=== PATIENT | female | born 1960 | race African-American/Black ===

== ENCOUNTER 2016-06-20 21:36 | Emergency (ER) | payer BC ==
[~2016-06-20] VITALS: Ht 172.7 cm; Wt 74.8 kg
[~2016-06-20 21:36] MED LIST: CLOP75TA PO; EZET1TAB35 PO; HYDR-2762 PO; LISI40TA PO; MELO7.5T29 PO; NEBI10TA3 PO; NIFE90TA PO; [UNRECOGNIZED DRUG - REMARK]
--- NOTE | 2016-06-20 22:22 | PHYS DOC ---
Past History Past Medical History: CAD, CVA, Diabetes, Hypertension Past Surgical History: Hysterectomy, Tubal ligation, Other Alcohol Use: Occasionally Drug Use: None Adult General Chief Complaint Chief Complaint: KNEE INJURY HPI HPI 56-year-old female presenting to the emergency department today after injuring her right knee. Her pain is mild to moderate worse with walking. She fell yesterday. She denies any other injuries. Onset yesterday location right knee. Duration intermittent. No alleviating factors. Review of systems was negative for ankle pain or hip pain. She denies chest pain or shortness of breath or abdominal pain. All other review of systems is negative unless otherwise noted in history of present illness. Review of Systems Review of Systems SEE ABOVE. Allergies Allergies Allergies Coded Allergies Type Severity Reaction Last Updated Verified No Known Drug Allergies 07/14/14 No Physical Exam Physical Exam Constitutional: Well developed, well nourished, no acute distress, non-toxic appearance. HENT: Normocephalic, atraumatic, bilateral external ears normal, oropharynx moist, no oral exudates, nose normal. [] Eyes: PERRLA, EOMI, conjunctiva normal, no discharge. Neck: Normal range of motion, no tenderness, supple, no stridor. [] Cardiovascular:Heart rate regular rhythm, no murmur Lungs & Thorax: Bilateral breath sounds clear to auscultation [] Abdomen: Bowel sounds normal, soft, no tenderness, no masses, no pulsatile masses. Skin: Warm, dry, no erythema, no rash. [] Back: No tenderness, no CVA tenderness. [] Extremities: right leg has mild pain in the right knee. Otherwise neurovascularly intact distally. Mild tenderness to palpation along the lateral and medial aspect of the knee. No lacerations or ecchymosis or abrasions present. No ecchymosis or swelling of the ankle. Good range of motion. He fires the TA, EH, FHL and Gastrocnemius soleus complex. Normal sensation in the deep peroneal, superficial peroneal, Sural, saphenous, medial and lateral tibial and calcaneal sensory nerves in the foot. 2+ PT and DP pulse. No pain to palpation on the medial or lateral malleolus or at the base of the fifth metatarsal. Neurologic: Alert and oriented X 3, normal motor function, normal sensory function, no focal deficits noted. [] Psychologic: Affect normal, judgement normal, mood normal. EKG EKG [] Radiology/Procedures Radiology/Procedures Right knee x-ray evaluated by myself shows no obvious fracture or dislocation. [ ] Course & Med Decision Making Course & Med Decision Making Pertinent Labs and Imaging studies reviewed. (See chart for details) [] Dragon Disclaimer Dragon Disclaimer This chart was dictated in whole or in part using Voice Recognition software in a busy, high-work load, and often noisy Emergency Department environment. It may contain unintended and wholly unrecognized errors or omissions. Departure Departure: Impression: Primary Impression: Right knee pain Disposition: HOME, SELF-CARE Condition: STABLE Referrals: PCP,EARNESTINE (PCP) TINO PASTOR MD Patient Instructions: Knee Pain, [id number] Additional Instructions: Thank you for allowing us to participate in your care today. Followup with your primary care physician in 3 days if your symptoms do not improve. If you do not have a primary care provider you can ask for a list of our primary care providers. Return to the emergency department you have any new or concerning findings. This should be evaluated by the primary care physician and any necessary consulting services for continued management within a few days after discharge. Return to emergency room if you have any new or concerning symptoms including but not limited to fever, chills, nausea, vomiting, intractable pain, any new rashes, chest pain, shortness of air, uncontrolled bleeding, difficulty breathing, and/or vision loss. You may have been prescribed medication that can change in your level of thinking and ability to operate machinery. These medications include hydrocodone and Ativan. Also, Benadryl has been known to do this as well. Be sure to check with your pharmacist and ask if the medications you've prescribed can affect your level of consciousness. I recommend not operating heavy machinery or driving while on medication such as these. Scripts Morphine Sulfate (MORPHINE SULFATE) 15 Mg Tablet 1 TAB PO PRN Q8HRS Y for SEVERE PAIN, #8 TAB Be careful as this medication may make you sleepy or drowsy. Do not drive or operate heavy machinery on this medication. Be sure to ask the pharmacist about other side effects that can exist such as constipation. Prov: SERENA RODRIGUEZ MD 06/20/16 Problem Qualifiers Primary Impression: Right knee pain Chronicity: acute Qualified Codes: M25.561 - Pain in right knee SERENA RODRIGUEZ MD June 20, 2016:22
[2016-06-20] MEDS ORDERED: MORP15TA PO (22:46)
[2016-06-20] MEDS ORDERED: MORPHINE IR 15 MG TABLET PO ONE (23:00)
[2016-06-20 23:19] VITALS: BP 143/94
--- NOTE | 2016-06-21 07:51 | RAD ---
Right knee, 3 views, 06/20/2016: History: Severe right knee pain, fall No fracture or dislocation is identified. There is mild spurring at the knee joint. Mild degenerative changes present patellofemoral articulation. No significant joint effusion is evident. IMPRESSION: 1. Mild degenerative change. 2. No acute bony abnormality is detected.
== END 2016-06-20 23:30 | disposition home or self-care (01) ==
LOC: ER 21:37
DX: M25.561 Pain in right knee (principal); E11.9 Type 2 diabetes mellitus without complications; I10 Essential (primary) hypertension; I25.10 Atherosclerotic heart disease of native coronary artery without angina pectoris; Z86.73 Personal history of transient ischemic attack (TIA), and cerebral infarction without residual deficits; W19.XXXA Unspecified fall, initial encounter; Y93.89 Activity, other specified; Y99.8 Other external cause status; Y92.89 Other specified places as the place of occurrence of the external cause
CPT/HCPCS: 29505; 73562; 99284-25

== ENCOUNTER 2017-02-13 18:44 | Emergency (ER) | payer BC ==
[~2017-02-13] VITALS: Ht 172.7 cm; Wt 74.8 kg
[~2017-02-13 18:44] MED LIST changes: +MORP15TA PO
[2017-02-13] MEDS ORDERED: diphenhydrAMINE 50 MG/ML VIAL IVP ONE (19:30)
[2017-02-13] MEDS ORDERED: PROCHLORPERAZINE 10 MG/2 ML VIAL. IV ONE (19:30)
[2017-02-13 19:36] LABS: BASO % 1 % (0-3); EOS # 0.1 x10^3/uL (0.0-0.7); EOS % 2 % (0-3); HEMATOCRIT 43.1 % (36.0-47.0); HEMOGLOBIN 14.9 g/dL (12.0-15.5); LYMPH # 2.6 x10^3/uL (1.0-4.8); LYMPH % 46 % (24-48); MEAN CORPUSCULAR HEMOGLOBIN 31 pg (25-35); MEAN CORPUSCULAR HGB CONC 35 g/dL (31-37); MEAN CORPUSCULAR VOLUME 90 fL (79-100); MONO # 0.4 x10^3/uL (0.0-1.1); MONO % 7 % (0-9); NEUT # 2.5 x10^3uL (1.8-7.7); NEUT % 44 % (31-73); PLATELET COUNT 233 x10^3/uL (140-400); RED BLOOD COUNT 4.81 x10^6/uL (3.50-5.40); RED CELL DISTRIBUTION WIDTH 13.3 % (11.5-14.5); WHITE BLOOD COUNT 5.7 x10^3/uL (4.0-11.0)
[2017-02-13 19:41] LABS: CALCIUM 9.2 mg/dL (8.5-10.1); GFR 68.9; POTASSIUM 3.3 mmol/L (3.5-5.1)
[2017-02-13] MEDS ORDERED: IV NORMAL SALINE 1,000ML 1,000 ML IV ONE (21:30)
[2017-02-13 21:51] LABS: BACTERIA,URINE 0 /HPF (0-FEW); BILIRUBIN,URINE NEG (NEG); CLARITY,URINE CLEAR; COLOR,URINE STRAW; GLUCOSE,URINE NEG (NEG); NITRITE,URINE NEG (NEG); RBC,URINE 0 /HPF (0-2); SQUAMOUS EPITHELIAL CELL,UR OCC /LPF; UROBILINOGEN,URINE 1 mg/dL (0.2 mg/dL); WBC,URINE OCC /HPF (0-4)
[2017-02-13] MEDS ORDERED: ACETAMINOPHEN 325 MG TABLET PO ONE (22:00)
[2017-02-13] MEDS ORDERED: KETOROLAC 15 MG/ML VIAL. IV ONE (22:00)
[2017-02-13 22:07] LABS: INFLUENZA A PATIENT NEGATIVE (NEGATIVE); INFLUENZA B PATIENT NEGATIVE (NEGATIVE)
--- NOTE | 2017-02-13 22:52 | EKG ---
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
--- NOTE | 2017-02-13 22:59 | PHYS DOC ---
Past History Past Medical History: CAD, CVA, Diabetes, Hypertension, Migraines Past Surgical History: Hysterectomy, Tubal ligation, Other Alcohol Use: None Drug Use: None Adult General Chief Complaint Chief Complaint: MULTIPLE COMPLAINTS [facility] HPI Patient is a 56-year-old female who presents with diffuse complaints that include headache similar to previous, diffuse chest wall and back pain as well as as upper extremity pain low back pain or muscle pain. Patient denies any fevers, rashes. Patient has been having some chills. Unknown if sick contacts. Patient states she did have her shots this year. Review of Systems Review of Systems Constitutional: Yes to chills Eyes: Denies change in visual acuity, redness, or eye pain [] HENT: No ear pain, mild soreness of the throat Respiratory: Yes to cough, no shortness of breath Cardiovascular: No additional information not addressed in HPI [] GI: Denies abdominal pain, nausea, vomiting, bloody stools or diarrhea [] : Denies dysuria or hematuria or vaginal discharge Musculoskeletal: Diffuse back pain Integument: Denies rash or skin lesions [] Neurologic: Denies headache, focal weakness or sensory changes [] All other systems were reviewed and found to be within normal limits, except as documented in this note. Current Medications Current Medications Current Medications Medications (Trade) Dose Ordered Sig/[facility] Start Time Stop Time Status Last Admin Dose Admin Acetaminophen (Tylenol) 650 mg 1X ONCE 02/13/17 22:00 02/13/17 22:01 DC 02/13/17 21:34 650 MG Diphenhydramine HCl (Benadryl) 25 mg 1X ONCE 02/13/17 19:30 02/13/17 19:31 DC 02/13/17 19:37 25 MG Ketorolac Tromethamine (Toradol) 15 mg 1X ONCE 02/13/17 22:00 02/13/17 22:01 DC 02/13/17 21:34 15 MG Prochlorperazine Edisylate (Compazine) 10 mg 1X ONCE 02/13/17 19:30 02/13/17 19:31 DC 02/13/17 19:37 10 MG Sodium Chloride 1,000 ml @ 1,000 mls/hr 1X ONCE 02/13/17 21:30 02/13/17 22:29 DC 02/13/17 21:35 1,000 MLS/HR Allergies Allergies Allergies Coded Allergies Type Severity Reaction Last Updated Verified No Known Drug Allergies 07/14/14 No Physical Exam Physical Exam Constitutional: Well developed, well nourished, mild distress, non-toxic appearance. [] HENT: Normocephalic, atraumatic, bilateral external ears normal, oropharynx moist, no oral exudates, nose normal. Airways patent Eyes: EOMI, conjunctiva normal, no discharge. [] Neck: Normal range of motion, no tenderness, supple, no stridor. No LAD, no meningeal signs Cardiovascular:Heart rate regular rhythm, no murmur, equal pulses, normal perfusion Lungs & Thorax: Bilateral breath sounds clear to auscultation on no tachypnea Abdomen: Bowel sounds normal, soft, no tenderness, no masses, no pulsatile masses. [] Skin: Warm, dry, no erythema, no rash. [] Back: Mild diffuse tenderness, no CVA tenderness. No midline tenderness, no step -offs Extremities: No tenderness, no cyanosis, no clubbing, ROM intact, no edema. No signs of DVT Neurologic: Alert and oriented X 3, normal motor function, normal speech, no focal deficits noted. Ambulates in the ED with normal gait and without assistance Psychologic: Affect normal, judgement normal, mood normal. [] Current Patient Data Vital Signs Vital Signs Date Time Temp Pulse Resp B/P (MAP) Pulse Ox O2 Delivery O2 Flow Rate FiO2 02/13/17 18:45 98.8 61 18 99 Room Air Lab Results Laboratory Tests Test 02/13/17 19:10 02/13/17 20:58 White Blood Count 5.7 x10^3/uL (4.0-11.0) Red Blood Count 4.81 x10^6/uL (3.50-5.40) Hemoglobin 14.9 g/dL (12.0-15.5) Hematocrit 43.1 % (36.0-47.0) Mean Corpuscular Volume 90 fL (79-100) Mean Corpuscular Hemoglobin 31 pg (25-35) Mean Corpuscular Hemoglobin Concent 35 g/dL (31-37) Red Cell Distribution Width 13.3 % (11.5-14.5) Platelet Count 233 x10^3/uL (140-400) Neutrophils (%) (Auto) 44 % (31-73) Lymphocytes (%) (Auto) 46 % (24-48) Monocytes (%) (Auto) 7 % (0-9) Eosinophils (%) (Auto) 2 % (0-3) Basophils (%) (Auto) 1 % (0-3) Neutrophils # (Auto) 2.5 x10^3uL (1.8-7.7) Lymphocytes # (Auto) 2.6 x10^3/uL (1.0-4.8) Monocytes # (Auto) 0.4 x10^3/uL (0.0-1.1) Eosinophils # (Auto) 0.1 x10^3/uL (0.0-0.7) Basophils # (Auto) 0.0 x10^3/uL (0.0-0.2) Sodium Level 145 mmol/L (136-145) Potassium Level 3.3 mmol/L (3.5-5.1) L Chloride Level 106 mmol/L (98-107) Carbon Dioxide Level 29 mmol/L (21-32) Anion Gap 10 (6-14) Blood Urea Nitrogen 11 mg/dL (7-20) Creatinine 1.0 mg/dL (0.6-1.0) Estimated GFR (Cockcroft-Gault) 68.9 Glucose Level 124 mg/dL (70-99) H Calcium Level 9.2 mg/dL (8.5-10.1) Troponin I Quantitative < 0.017 ng/mL (0-0.055) Urine Collection Type Unknown Urine Color Straw Urine Clarity Clear Urine pH 8.5 Urine Specific [place] 1.020 Urine Protein Neg (NEG-TRACE) Urine Glucose (UA) Neg mg/dL (NEG) Urine Ketones (Stick) Neg mg/dL (NEG) Urine Blood Neg (NEG) Urine Nitrite Neg (NEG) Urine Bilirubin Neg (NEG) Urine Urobilinogen Dipstick 1 mg/dL (0.2 mg/dL) Urine Leukocyte Esterase Neg (NEG) Urine RBC 0 /HPF (0-2) Urine WBC Occ /HPF (0-4) Urine Squamous Epithelial Cells Occ /LPF Urine Bacteria 0 /HPF (0-FEW) Influenza Type A (Rapid) Negative (NEGATIVE) Influenza Type B (Rapid) Negative (NEGATIVE) EKG EKG 1855 65, sinus rhythm, no STEMI[] Radiology/Procedures Radiology/Procedures Preliminary chest x-ray read no acute pathology[] Course & Med Decision Making Course & Med Decision Making Pertinent Labs and Imaging studies reviewed. (See chart for details) Patient feels improved and requested to be discharged home. Prior To discharge we will do an i-STAT troponin and if negative we will discharge the patient home for outpatient follow-up. Patient looks well and vital signs are unremarkable physical exam is unremarkable. Patient has improved during the ED stay. Her chief complaint is diffuse muscle aches and malaise. Given the findings today I believe the patient is is stable for outpatient follow-up, imaging is not required at this time. Strict return precautions have been discussed with the patient and the family who agreed to follow-up as directed. [2317 istat troponin negative] Dragon Disclaimer Dragon Disclaimer This electronic medical record was generated, in whole or in part, using a voice recognition dictation system. Departure Departure: Impression: Primary Impression: Body aches Additional Impressions: Nonspecific chest pain Migraine Disposition: 01 HOME, SELF-CARE Condition: STABLE Referrals: PCPEARNESTINE (PCP) His follow-up with your doctor for recheck and reevaluation in one day. You may also follow-up at one of the clinics in the list provided to you. Patient Instructions: Chest Pain (Nonspecific), Migraine Headache, Myalgia, Adult Additional Instructions: Patient is directed to take Tylenol and or ibuprofen for pain control. Problem Qualifiers Efrem ERWIN MD Feb 13, 2017 22:59
[2017-02-13 23:07] VITALS: BP 140/87
--- NOTE | 2017-02-14 07:43 | RAD ---
Indication: Chest pain Technique: Portable AP upright chest x-ray Comparison: Previous study from 08/05/2015 Findings: Heart is top normal in size. Lungs are clear of focal consolidation. No pneumothorax or pleural effusion. Visualized bony thorax is within normal limits. Impression: No acute cardiopulmonary process.
== END 2017-02-13 23:30 | disposition home or self-care (01) ==
LOC: ER 18:44
DX: G43.909 Migraine, unspecified, not intractable, without status migrainosus (principal); R07.89 Other chest pain; M54.5 Low back pain; E11.9 Type 2 diabetes mellitus without complications; I10 Essential (primary) hypertension; I25.10 Atherosclerotic heart disease of native coronary artery without angina pectoris; Z86.73 Personal history of transient ischemic attack (TIA), and cerebral infarction without residual deficits
CPT/HCPCS: 36415; 71045; 80048; 81001; 82803; 84484; 85025; 87804; 93005; 96361; 96374; 96375; 99285; J0780; J1200; J1885; J7030

== ENCOUNTER 2018-04-22 21:14 | Emergency (ER) | payer BC ==
[~2018-04-22] VITALS: Ht 172.7 cm; Wt 77.1 kg
[~2018-04-22 21:14] MED LIST changes: -HYDR-2762 PO; +HYDR-2765 PO
[2018-04-22 21:30] VITALS: BP 145/110
[2018-04-22] MEDS ORDERED: TRAM50TA PO (23:22)
--- NOTE | 2018-04-22 23:22 | PHYS DOC ---
Past History Past Medical History: CAD, CVA, Diabetes, Hypertension, Hepatitis, Migraines Past Surgical History: Hysterectomy, Tubal ligation, Other Alcohol Use: None Drug Use: None Adult General Chief Complaint Chief Complaint: KNEE INJURY [facility] HPI Patient is a 58-year-old female who presents with complaint of left knee pain and injury 2 days after she twisted her knee trying to step over her grandchild. She denies fall and had no other injuries. She states that her knee has been very painful since twisting her knee. She states pain is worsened with weightbearing. She states that nothing improves the pain. Review of Systems Review of Systems Constitutional: Denies fever or chills [] Respiratory: Denies cough or shortness of breath [] Cardiovascular: No additional information not addressed in HPI [] Musculoskeletal: Positive left knee pain [] Integument: Denies rash or skin lesions [] Allergies Allergies Allergies Coded Allergies Type Severity Reaction Last Updated Verified No Known Drug Allergies 07/14/14 No Physical Exam Physical Exam Constitutional: Well developed, well nourished, no acute distress, non-toxic appearance. [] Cardiovascular:Heart rate regular rhythm, no murmur [] Lungs & Thorax: Bilateral breath sounds clear to auscultation [] Extremities: Left knee demonstrates tenderness to palpation primarily around the lateral joint line. Patient is unable to tolerate ligamentous testing due to reported pain. [] Neurologic: Alert and oriented X 3, no focal deficits noted. [] Current Patient Data Vital Signs Vital Signs Date Time Temp Pulse Resp B/P (MAP) Pulse Ox O2 Delivery O2 Flow Rate FiO2 04/22/18 21:30 97.9 84 18 98 Room Air EKG EKG [] Radiology/Procedures Radiology/Procedures [] Impressions: X-ray of left knee demonstrates no acute bony abnormalities. Course & Med Decision Making Course & Med Decision Making Pertinent Labs and Imaging studies reviewed. (See chart for details) Patient placed in left knee immobilizer by ER nurse. Good fit pertinent is noted post placement of splint with neurovascular intact distal to immobilizer. Dragon Disclaimer Dragon Disclaimer This electronic medical record was generated, in whole or in part, using a voice recognition dictation system. Departure Departure: Impression: Primary Impression: Knee sprain Disposition: 01 HOME, SELF-CARE Condition: STABLE Referrals: PCP,EARNESTINE (PCP) Patient Instructions: Knee Sprain Scripts Tramadol Hcl (TRAMADOL HCL) 50 Mg Tablet 50 MG PO PRN Q6HRS PRN for PAIN, #12 TAB Prov: DYLON KILPATRICK Jr. DO 04/22/18 Problem Qualifiers Primary Impression: Knee sprain Encounter type: initial encounter Involved ligament of knee: unspecified ligament Laterality: left Qualified Codes: S83.92XA - Sprain of unspecified site of left knee, initial encounter DYLON KILPATRICK Jr. DO Apr 22, 2018 23:22
[2018-04-22] MEDS ORDERED: traMADol 50 MG TABLET PO ONE (23:45)
--- NOTE | 2018-04-23 08:12 | RAD ---
Examination: 3 views of the left knee HISTORY: History of twisting of the left knee, pain COMPARISON: None available FINDINGS: Moderate joint space loss identified in the medial, lateral, patellofemoral compartments. Moderate-sized osteophyte formation identified in the lateral compartment. No significant knee joint effusion is identified. No acute fracture identified. IMPRESSION: 1. Tricompartmental degenerative changes most in the lateral compartment. Electronically signed by: Thierry Tomas MD (04/23/2018 8:10 AM) [facility]
== END 2018-04-22 23:47 | disposition home or self-care (01) ==
LOC: ER 21:14
DX: S83.92XA Sprain of unspecified site of left knee, initial encounter (principal); I25.10 Atherosclerotic heart disease of native coronary artery without angina pectoris; E11.9 Type 2 diabetes mellitus without complications; I10 Essential (primary) hypertension; G43.909 Migraine, unspecified, not intractable, without status migrainosus; Z86.73 Personal history of transient ischemic attack (TIA), and cerebral infarction without residual deficits; X50.1XXA Overexertion from prolonged static or awkward postures, initial encounter; Y93.89 Activity, other specified; Y92.89 Other specified places as the place of occurrence of the external cause; Y99.8 Other external cause status
CPT/HCPCS: 29505; 73562; 99283

== ENCOUNTER 2018-09-04 15:05 | Emergency (ER) | payer BC ==
[~2018-09-04] VITALS: Ht 172.7 cm; Wt 68.0 kg
[~2018-09-04 15:05] MED LIST changes: +TRAM50TA PO
[2018-09-04 15:42] LABS: BASO % 1 % (0-3); EOS # 0.1 x10^3/uL (0.0-0.7); EOS % 2 % (0-3); HEMATOCRIT 36.6 % (36.0-47.0); LYMPH # 2.1 x10^3/uL (1.0-4.8); LYMPH % 44 % (24-48); MEAN CORPUSCULAR HEMOGLOBIN 29 pg (25-35); MEAN CORPUSCULAR HGB CONC 33 g/dL (31-37); MEAN CORPUSCULAR VOLUME 87 fL (79-100); MONO # 0.5 x10^3/uL (0.0-1.1); MONO % 10 % (0-9); NEUT # 2.1 x10^3uL (1.8-7.7); NEUT % 44 % (31-73); PLATELET COUNT 254 x10^3/uL (140-400); RED BLOOD COUNT 4.19 x10^6/uL (3.50-5.40); RED CELL DISTRIBUTION WIDTH 14.9 % (11.5-14.5); WHITE BLOOD COUNT 4.7 x10^3/uL (4.0-11.0)
--- NOTE | 2018-09-04 15:49 | PHYS DOC ---
Past History Past Medical History: CAD, CVA, Diabetes, High Cholesterol, Hypertension, Hepatitis, Migraines, Other Past Surgical History: Coronary Bypass Surgery, Hysterectomy, Tubal ligation Alcohol Use: None Drug Use: None Adult General Chief Complaint Chief Complaint: BACK PAIN OR INJURY [facility] 58-year-old female presents with chest pain, left hip pain, and right knee pain. The patient describes the chest pain as a burning, sandpaper sensation. This has been intermittent for a couple of weeks, but is more persistent today. She had CABG 3 months ago. The chest pain does not feel like a heaviness that she fell before she had her bypass. She denies shortness of breath. She has no diaphoresis. Patient denies history of GERD. She also complains of some left hip pain. She says that since her bypass she has had discomfort with walking in the left hip. She denies any trauma or falls. At the same time, she complains of medial joint pain in the right knee. This pain has been going on about as long as the hip pain. She also denies trauma to this area. Review of Systems Review of Systems Constitutional: Denies fever or chills [] Eyes: Denies change in visual acuity, redness, or eye pain [] HENT: Denies nasal congestion or sore throat [] Respiratory: Denies cough or shortness of breath [] Cardiovascular: No additional information not addressed in [facility] [] GI: Denies abdominal pain, nausea, vomiting, bloody stools or diarrhea [] : Denies dysuria or hematuria [] Musculoskeletal: Left hip pain, right knee pain[] Integument: Denies rash or skin lesions [] Neurologic: Denies headache, focal weakness or sensory changes [] Endocrine: Denies polyuria or polydipsia [] All other systems were reviewed and found to be within normal limits, except as documented in this note. Allergies Allergies Allergies Coded Allergies Type Severity Reaction Last Updated Verified No Known Drug Allergies 07/14/14 No Physical Exam Physical Exam Constitutional: Well developed, well nourished, no acute distress, non-toxic appearance. [] HENT: Normocephalic, atraumatic, bilateral external ears normal, oropharynx moist, no oral exudates, nose normal. [] Eyes: PERRLA, EOMI, conjunctiva normal, no discharge. [] Neck: Normal range of motion, no tenderness, supple, no stridor. [] Cardiovascular:Heart rate regular rhythm, no murmur [] Lungs & Thorax: Bilateral breath sounds clear to auscultation [] Abdomen: Bowel sounds normal, soft, no tenderness, no masses, no pulsatile masses. [] Skin: Warm, dry, no erythema, no rash. [] Back: No tenderness, no CVA tenderness. [] Extremities: Tenderness to palpation of the left lateral hip. Tenderness to palpation of the medial joint line of the right knee.[] Neurologic: Alert and oriented X 3, normal motor function, normal sensory function, no focal deficits noted. [] Psychologic: Affect normal, judgement normal, mood normal. [] Current Patient Data Vital Signs Vital Signs Date Time Temp Pulse Resp B/P (MAP) Pulse Ox O2 Delivery O2 Flow Rate FiO2 09/04/18 15:24 97.4 76 21 96 Room Air Lab Results Laboratory Tests Test 09/04/18 15:32 White Blood Count 4.7 x10^3/uL (4.0-11.0) Red Blood Count 4.19 x10^6/uL (3.50-5.40) Hemoglobin 12.0 g/dL (12.0-15.5) Hematocrit 36.6 % (36.0-47.0) Mean Corpuscular Volume 87 fL (79-100) Mean Corpuscular Hemoglobin 29 pg (25-35) Mean Corpuscular Hemoglobin Concent 33 g/dL (31-37) Red Cell Distribution Width 14.9 % (11.5-14.5) H Platelet Count 254 x10^3/uL (140-400) Neutrophils (%) (Auto) 44 % (31-73) Lymphocytes (%) (Auto) 44 % (24-48) Monocytes (%) (Auto) 10 % (0-9) H Eosinophils (%) (Auto) 2 % (0-3) Basophils (%) (Auto) 1 % (0-3) Neutrophils # (Auto) 2.1 x10^3uL (1.8-7.7) Lymphocytes # (Auto) 2.1 x10^3/uL (1.0-4.8) Monocytes # (Auto) 0.5 x10^3/uL (0.0-1.1) Eosinophils # (Auto) 0.1 x10^3/uL (0.0-0.7) Basophils # (Auto) 0.0 x10^3/uL (0.0-0.2) EKG EKG Sinus rhythm, rate 63, normal axis, no ST elevations or depressions, PVC.[] Radiology/Procedures Radiology/Procedures [] Impressions: EXAM: Chest, single view. HISTORY: Chest pain. COMPARISON: None. FINDINGS: A frontal view of the chest is obtained. There is no infiltrate, pleural effusion or pneumothorax. The cardiac silhouette is mildly enlarged. There is evidence of prior CABG. IMPRESSION: 1. No acute pulmonary finding. 2. Mild enlargement of the cardiac silhouette. Electronically signed by: Tawanna Iyer MD (09/04/2018 4:20 PM) [place] [id number] DICTATED AND SIGNED BY: TAWANNA IYER MD DATE: 09/04/181619 CC: CELENA CRAWFORD DO; PCP,NO ~ EXAM: Right knee, 3 views; pelvis and left hip, 2 views. HISTORY: Pain with walking. COMPARISON: None. FINDINGS: Right knee: 3 views the right knee are obtained. There is mild tricompartmental spurring. There is a small right knee effusion. There is a small suspected fragmented enthesophyte along the superior patella. Pelvis and left hip: A frontal view of the pelvis and frog-leg view the left hip are obtained. There is no fracture, dislocation or subluxation. There is degenerative change involving the pubis symphysis. There is minimal right femoral head marginal spurring. There is degenerative endplate remodeling with disc space narrowing at L4-L5. IMPRESSION: 1. No acute osseous finding. 2. Mild tricompartmental osteoarthritis of the right knee with suspected small joint effusion. 3. Minimal right hip osteoarthritis. Electronically signed by: Tawanna Iyer MD (09/04/2018 4:19 PM) [place] [id number] DICTATED AND SIGNED BY: TAWANNA IYER MD DATE: 09/04/18 [id number] CC: CELENA CRAWFORD DO; PCP,NO ~ Course & Med Decision Making Course & Med Decision Making Pertinent Labs and Imaging studies reviewed. (See chart for details) Patient's chest x-ray is unremarkable. Her urinalysis is unremarkable. Her EKG is unremarkable. Her troponin is negative. Her other labs are remarkable only for a potassium of 3.2. I will give her 40 mEq of potassium by mouth. The x-ray for knee shows some arthritis and possible small effusion. I suspect the pain in her knee and/or the hip is causing the pain and the other joint. She is likely compensating and putting stress on the contralateral side. The patient is oriented on narcotic pain medication. I will be unable to give her any additional pain medicines for home. I have advised that she discuss options for treatment with orthopedics. She is stable for discharge at this time. [] Dragon Disclaimer Dragon Disclaimer This electronic medical record was generated, in whole or in part, using a voice recognition dictation system. Departure Departure: Impression: Primary Impression: Arthritis of right knee Additional Impressions: Left hip pain GERD (gastroesophageal reflux disease) Disposition: 01 HOME, SELF-CARE Condition: STABLE Referrals: PCP,NO (PCP) Patient Instructions: Arthritis, Nonspecific, [id number] Problem Qualifiers Additional Impressions: GERD (gastroesophageal reflux disease) Esophagitis presence: without esophagitis Qualified Codes: K21.9 - Gastro- esophageal reflux disease without esophagitis CELENA CRAWFORD DO Sep 04, 2018 15:49
[2018-09-04 15:57] LABS: ALBUMIN 3.2 g/dL (3.4-5.0); ALBUMIN/GLOBULIN RATIO 0.8 (1.0-1.7); CALCIUM 8.9 mg/dL (8.5-10.1); GFR 68.4; POTASSIUM 3.2 mmol/L (3.5-5.1); TOTAL BILIRUBIN 0.3 mg/dL (0.2-1.0); TOTAL PROTEIN 7.2 g/dL (6.4-8.2)
--- NOTE | 2018-09-04 15:57 | EKG ---
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
--- NOTE | 2018-09-04 16:22 | RAD ---
EXAM: Right knee, 3 views; pelvis and left hip, 2 views. HISTORY: Pain with walking. COMPARISON: None. FINDINGS: Right knee: 3 views the right knee are obtained. There is mild tricompartmental spurring. There is a small right knee effusion. There is a small suspected fragmented enthesophyte along the superior patella. Pelvis and left hip: A frontal view of the pelvis and frog-leg view the left hip are obtained. There is no fracture, dislocation or subluxation. There is degenerative change involving the pubis symphysis. There is minimal right femoral head marginal spurring. There is degenerative endplate remodeling with disc space narrowing at L4-L5. IMPRESSION: 1. No acute osseous finding. 2. Mild tricompartmental osteoarthritis of the right knee with suspected small joint effusion. 3. Minimal right hip osteoarthritis. Electronically signed by: Tawnana Iyer MD (09/04/2018 4:19 PM) [id number]
--- NOTE | 2018-09-04 16:23 | RAD ---
EXAM: Chest, single view. HISTORY: Chest pain. COMPARISON: None. FINDINGS: A frontal view of the chest is obtained. There is no infiltrate, pleural effusion or pneumothorax. The cardiac silhouette is mildly enlarged. There is evidence of prior CABG. IMPRESSION: 1. No acute pulmonary finding. 2. Mild enlargement of the cardiac silhouette. Electronically signed by: Tawanna Iyer MD (09/04/2018 4:20 PM) [facility]
[2018-09-04] MEDS ORDERED: LIDO:MAALOX 1:1 20 ML SINGLE DOSE. PO ONE ×2 (17:00→17:30)
[2018-09-04] MEDS ORDERED: POTASSIUM CHLORIDE 20 MEQ TABLET.ER. PO ONE (17:00)
[2018-09-04 17:09] LABS: CLARITY,URINE CLOUDY; COLOR,URINE AMBER
[2018-09-04 17:10] LABS: BACTERIA,URINE FEW /HPF (0-FEW); BILIRUBIN,URINE NEG (NEG); GLUCOSE,URINE NEG (NEG); NITRITE,URINE NEG (NEG); RBC,URINE 0 /HPF (0-2); SQUAMOUS EPITHELIAL CELL,UR OCC /LPF; UROBILINOGEN,URINE 0.2 mg/dL (0.2 mg/dL); WBC,URINE 0 /HPF (0-4)
[2018-09-04 17:38] VITALS: BP 156/87
== END 2018-09-04 17:50 | disposition home or self-care (01) ==
LOC: ER 15:05
DX: K21.9 Gastro-esophageal reflux disease without esophagitis (principal); M13.861 Other specified arthritis, right knee; M25.552 Pain in left hip; I25.810 Atherosclerosis of coronary artery bypass graft(s) without angina pectoris; E11.9 Type 2 diabetes mellitus without complications; E78.00 Pure hypercholesterolemia, unspecified; I10 Essential (primary) hypertension; G43.909 Migraine, unspecified, not intractable, without status migrainosus; Z86.73 Personal history of transient ischemic attack (TIA), and cerebral infarction without residual deficits
CPT/HCPCS: 36415; 71045; 73502; 73562; 80053; 81001; 84484; 85025; 93005; 99285